=== PATIENT | female | born 1965 | race Caucasian/White ===

== ENCOUNTER 2020-09-18 10:46 | Outpatient (REF) | payer OTHER, SELFPAY | END 2020-09-18 10:47 | disposition home or self-care (01) | LOC: HO.10HDLNP 10:46 | PROVIDERS: Visit Provider Otolaryngology | DX: K14.9 Disease of tongue, unspecified (principal) | CPT/HCPCS: 87102 ==

== ENCOUNTER 2024-07-28 11:01 | Outpatient (AMB) | payer OTHER, SELFPAY ==
--- NOTE | 2024-07-28 11:15 | MHC.OFFVIS ---
Vital Signs 07/28/24 11:17 Height 5 ft 3 in Weight 119 lb 0.794 oz BMI 21.1 BP 119/72 Blood Pressure Location Lt brachial Position Sitting Pulse 65 Intake Visit Reasons: persistent GI motility/ constipation Intake Note: Shelby presents in the office as a new patient for constipation and GI motility issues. CC: She states that she only has cramping when she does not have a BM. She states she suffers from constipation. She states that she is having a colonoscopy in Sep at [facility]. Director Advertising Required: No Allergies No Known Allergies Allergy (Verified 07/28/24 11:17) HPI Comments Details: 58 y.o F with PMH of who is here for longstanding constipation. Reports having work up done through [facility] almost 5 years including a sitz marker (21 markers were retained after 5 days). Pt reports having a small BM every day. [place] stool scale 1-2. Fluid intake 64 oz per day. Hx of 3 vaginal deliveries - needed stitches for one of them. Had a 2nd degree midline perineal tear. Last colo 10 years ago. Fox for repeat in Oct through [place]. Current meds: None Prev meds: mag citrate tabs every day miralax 1 cap every day colace senna -stopped due to question of dependency fiber -citrucel, metamucil PFSH Surgical History (Updated 07/28/24 @ 11:19 by BECKIE Garcia) Hx of colonoscopy Review of Systems Const All systems reviewed & are unremarkable except as noted in HPI and below Physical Exam Vital Signs: Last Vital Signs Pulse 65 07/28/24 11:17 BP 119/72 07/28/24 11:17 BMI result Body Mass Index 21.1 No apparent distress Nonicteric Abdomen soft, nondistended Alert and oriented x3, normal gait Assessment & Plan Assessment & Plan (1) Chronic idiopathic constipation: Code(s): K59.04 - Chronic idiopathic constipation Category: Medical Plan Overall presentation consistent with chronic idiopathic constipation/slow transit constipation. Bloating likely secondary to IMO. Reviewed resumption of laxatives, will favor combination osmotic and stimulant to start with. Also reviewed that okay to go to low residue diet, until she has regular BMs. Plan: -start senna 2 tablets 30 minutes before breakfast -MiraLax 1 to 2 times a day daily -pediatric glycerin suppositories x2 per rectum specially if has hard/impacted stool -patient to adjust/titrate to effect -follow-up in 4 weeks to review if needs adjunct treatment with newer agents vs eval for outlet dysfunction Coding Level of Care Code New Pt Level 4 (99180) Diagnoses Chronic idiopathic constipation K59.04
[2024-07-28 11:17] VITALS: BP 119/72; PULSE 65; BMI 21.1
== END 2024-07-28 11:52 | disposition home or self-care (01) ==
LOC: HO.HGI 11:02
PROVIDERS: Visit Provider Internal Medicine
DX: K59.04 Chronic idiopathic constipation (principal)
CPT/HCPCS: 99204

== ENCOUNTER → 2024-07-28 11:01 | Outpatient (BNVA) | payer OTHER, SELFPAY | PROVIDERS: Visit Provider Internal Medicine ==